=== PATIENT | female | born 1990 | race Caucasian/White ===

== ENCOUNTER 2016-07-16 14:38 | Observation (INO) | payer BC ==
[~2016-07-16] VITALS: Ht 161.3 cm; Wt 82.6 kg
[2016-07-16] MEDS ORDERED: TYLENOL325 MG PO (15:08)
--- NOTE | 2016-07-16 17:04 | NUR ---
Admitted this afternoon with gastroenteritis.Started getting sick on Sun.Had temp,N/V,& diarrhea.States had about 10-15 watery stools yesterday.Need stool to check for C-diff & O&P.Is to have CT scan this afternoon with contrast.Had Zofran 4mg IV at 1630.Also had motrin 600mg at 1550 "for hurting & aching all over".Admission temp was 100.0.Pleasant.
--- NOTE | 2016-07-17 05:33 | NUR ---
Significant Event: ALERT AND ORIENTED X4 UP AT [facility] IN ROOM. IV R ANTICUBITAL RUNNING AT 150ML/HR. COMPLAINTS OF STOMACH CRAMPS AND NAUSEA. ZOFRAN GIVEN AT 0355. HAS HAD LOOSE STOOLS X 8 THIS SHIFT NEGATIVE FOR C-DIFF AND O&P, CLEAR LIQUID DIET. VS WNL AFIBRILE. Follow up:
[2016-07-17 05:39] LABS: BASOPHIL % 0.2 %; HEMATOCRIT 33.4 % (33.0-46.0); HEMOGLOBIN 11.9 g/dL (11.0-15.0); IMMATURE GRANULOCYTE % 0.5 %; LYMPHOCYTE # 0.7 K/uL (0.8-4.0); LYMPHOCYTE % 10.3 %; MCH 31.7 pg (27.0-34.0); MCHC 35.6 gm/dL (32.0-36.5); MCV 89.1 fl (83.0-98.0); MONOCYTE # 0.5 K/uL (0.0-1.0); MONOCYTE % 7.3 %; MPV 10.4 fl (9.4-12.4); NEUTROPHIL # (ANC) 5.4 K/uL (1.8-7.8); NEUTROPHIL % 81.7 %; NRBC % 0 /100WBC (0-0.00); PLATELET COUNT 144 K/uL (150-450); RDW-CV 12.4 % (11.9-14.6); WBC 6.6 K/uL (4.0-11.0)
[2016-07-17 05:40] LABS: RBC 3.75 M/uL (3.50-5.00)
[2016-07-17 06:00] LABS: ANION GAP 11.6 (10.0-19.0); BLOOD UREA NITROGEN 8 mg/dL (6-24); CALCIUM 8.4 mg/dL (8.5-10.5); CHLORIDE 104 mMol/L (96-110); CO2 23 mMol/L (22-32); CREATININE 0.6 mg/dL (0.5-1.1); ESTIMATED GFR (MDRD EQUATION) > 60; POTASSIUM 3.6 mMol/L (3.7-5.1); SODIUM 135 mMol/L (135-145)
--- NOTE | 2016-07-17 11:21 | NUR ---
DISCHARGE: Pt. was explained discharge instructions, educated on treating diarrhea and ileus instructions. No new medications. Verbalized understanding, no questions or concerns. Will schedule own follow up appointment at [facility] per patient request. Left with all belongings and prescriptions. IV removed by primary nurse. Taken to front door by aide and driven home by .
--- NOTE | 2016-07-17 11:25 | NUR ---
Significant Event: Pt denies pain. up ad nona. Has had a few loose stools this am. Tolerated regular diet. Dc to home at 1120 with spouse, states understanding of all dc instructions. Follow up:
== END 2016-07-17 11:20 | disposition disaster alternative care site (69) ==
LOC: GMSU 14:38
PROVIDERS: ADMIT Family Medicine
DX: K52.9 Noninfective gastroenteritis and colitis, unspecified (principal); E86.0 Dehydration; K56.7 Ileus, unspecified
CPT/HCPCS: G0378; G0379; J2405; J3480